=== PATIENT | male | born 1955 | race Caucasian/White ===

== ENCOUNTER 2016-08-29 00:47 | Emergency (ER) | payer SELFPAY ==
--- NOTE | ~2016-08-29 | ER ---
PATIENT'S NAME: [facility] AGE: 61 Y [address] ROOM: [place] [address] LOCATION: [facility] ADMIT DATE: 08/29/2016 ER/Outpatient Report DISCHARGE DATE: 08/29/2016 FAMILY PHYSICIAN: PHYSICIAN, NO ATTENDING PHYSICIAN: Alan Rome TIME OF ARRIVAL: 0047 hours. TIME OF EVALUATION: 0054 hours. CHIEF COMPLAINT: Right thumb swelling. HISTORY OF PRESENT ILLNESS: The patient is a 61-year-old male who presents to the emergency department today with a chief complaint of right thumb swelling. He reports he had a blister on it earlier, he picked it off, it got worse in the past day. He has taken some ibuprofen and pain is currently 8/10 in severity. It is sharp and it is worse with movement. PAST MEDICAL HISTORY: None. PAST SURGICAL HISTORY: Right wrist. SOCIAL HISTORY: The patient denies any tobacco use. Denies any alcohol use. Reports he uses a line of speed every once in a while. ALLERGIES: NO KNOWN DRUG ALLERGIES. MEDICATIONS: None. REVIEW OF SYSTEMS: All systems are reviewed by myself are negative with the exception of those discussed in HPI and past medical history. PHYSICAL EXAMINATION: VITAL SIGNS: Weight 91.5 kg. Blood pressure is 175/79, pulse 79, respiratory rate 18, temperature 98.3, and oxygen saturation 99% on room air. PATIENT'S NAME: [facility] AGE: 61 Y [address] ROOM: [place] [address] LOCATION: [facility] ADMIT DATE: 08/29/2016 ER/Outpatient Report DISCHARGE DATE: 08/29/2016 FAMILY PHYSICIAN: PHYSICIAN, NO ATTENDING PHYSICIAN: Alan Rome GENERAL: The patient is a 61-year-old male, appears stated age, in mild acute distress, secondary to the pain in his thumb. HEENT: Normocephalic, atraumatic. NECK: Supple. There is no nuchal rigidity. CARDIOVASCULAR: Regular rate and rhythm. LUNGS: Clear to auscultation. ABDOMEN: Soft, nontender, and nondistended. No rebound, rigidity, or guarding. MUSCULOSKELETAL: The patient has full range of motion. No bony tenderness to palpation. SKIN: The patient has a fluctuant area at the right thumb surrounding the nail bed consistent with paronychia. There is some erythema proximal. LABS AND X-RAYS: None. IMPRESSION: 1. Paronychia, right thumb. 2. Initial visit. EMERGENCY DEPARTMENT COURSE: The patient brought back to the examination room. He was seen and evaluated by myself. History and physical performed by myself. I have recommended incision and drainage of the paronychia. The risks and benefits are discussed. Consent is obtained. A digital block is performed by myself. A 1% lidocaine with 0.5% Marcaine is infiltrated. There is some bloody discharge noted. I discussed return to care instructions including worsening symptoms or any other concerns to return to the emergency department as soon as possible. I have asked that he follows up with primary care doctor in 24 hours for reevaluation. I have written a prescription for [place], dispensing #6, 5/325. The patient's tetanus is updated. I also wrote a prescription for Bactrim. The patient is agreeable without further questions. DISPOSITION: The patient is discharged home in good condition. DO AURY JASMINE/heri /[id number] d: 08/29/16 0328 t: 09/03/16 1332, OUTPATIENT REPORT
== END 2016-08-29 01:27 | disposition disaster alternative care site (69) ==
LOC: GMED 00:47
PROC: 0H9FXZZ Drainage of Right Hand Skin, External Approach (ICD-10-PCS; principal; 2016-08-29)
DX: L03.011 Cellulitis of right finger (principal); Z23 Encounter for immunization

== ENCOUNTER 2016-09-07 17:10 | Inpatient (IN) | payer SELFPAY ==
[~2016-09-07] VITALS: Ht 175.3 cm; Wt 82.0 kg
--- NOTE | ~2016-09-07 | CON ---
PATIENT'S NAME: GOPI YI [facility] AGE: 61 Y [address] ROOM: [place] [id number] LOCATION: [facility] ADMIT DATE: 09/07/2016 Consultation DISCHARGE DATE: FAMILY PHYSICIAN: ABRAHAM HOUSER ATTENDING PHYSICIAN: OPAL SALVADOR DATE OF CONSULTATION: 09/07/2016 CONSULTATION NOTE CHIEF COMPLAINT: Right thumb pain. HISTORY OF PRESENT ILLNESS: Gopi Yi is a 61-year-old male. He presented to the emergency room with worsening right thumb pain and swelling. He said that the antibiotics that he was placed at the previous encounter did not seem to be working as the redness and the drainage has increased. He says that he has not had any fevers or chills but he is definitely having worsening redness. He had presented to the emergency room several days ago. At that point, he underwent a debridement and irrigation in the emergency room by the ER physician. He was placed on oral antibiotics and discharged to home. He has been compliant with the oral antibiotics per his report, but he says that the redness is getting worse. He said that all of this started as a small area of pus draining on just adjacent to the nail. He is able to squeeze it and expressed a little bit of pus out of it. He said that the redness did worsen and he presented to the emergency room with initial encounter with quite a bit of sloughing of the skin. PAST MEDICAL HISTORY: None. MEDICATIONS: He denies any home medications on a regular basis outside of the current antibiotic he is on. SOCIAL HISTORY: He denies any alcohol. He denies any illicit drug use. He denies any tobacco use. REVIEW OF SYSTEMS: As per the HPI, a 14-point review of systems was conducted and is negative. PATIENT'S NAME: GOPI YI [facility] AGE: 61 Y [address] ROOM: [address] [address] LOCATION: [facility] ADMIT DATE: 09/07/2016 Consultation DISCHARGE DATE: FAMILY PHYSICIAN: ABRAHAM HOUSER ATTENDING PHYSICIAN: OPAL SALVADOR FAMILY HISTORY: Reviewed and is noncontributory. PHYSICAL EXAMINATION: GENERAL APPEARANCE: He is awake, he is alert, and he is oriented. He is accompanied by his . HEAD: Normocephalic and atraumatic. LUNGS: Unlabored respirations on room air. ABDOMEN: Nondistended. AND RECTAL: Deferred. EXTREMITIES: Left upper extremity, the skin is intact. There is no erythema. There is no ecchymosis. There is no induration. He has no evidence of any crepitus over the left shoulder, left elbow, or left wrist. Skin is intact. Right upper extremity; he has no pain over the right clavicle, right shoulder, right elbow, or right wrist. The skin over those areas is intact. He has full passive range of motion of the right shoulder and right elbow and right wrist. He does have significant erythema and swelling in kind of a fusiform manner including the proximal and distal phalanx of the right thumb. The nail is intact. Good capillary refill. It is warm to the touch. He has two areas over the radial aspect of that thumb that appeared to have purulent drainage. With gentle palpation with a gloved digit, I am able to express gross purulence out of these two areas. He does not have any pain tracking along the flexor tendon. He has so much swelling on the hand, it is difficult for him to flex and extend the IP joint of the right thumb. The redness and erythema stops at about the level of the MCP joint. No pain with passive wrist motion. No pain with MCP or IP motion of the other four digits. PLAN: At this point, we are going to take him back to the operating room. Given the gross purulence on the exam, I think he does have an abscess there. We are going to review the xrays taken in the ER today, which show a fracture on uncertain etiology. I am going to have him admitted by the Hospitalist for IV antibiotics until the infection starts to clear up. I did talk to him about the risk of bleeding, damage to surrounding structures including blood vessels, and nerves. Given the fact that he has two areas with gross purulence draining at present which is gentle palpation, I think we would definitely have to I and D these. Will plan on addressing the fracture once the infection has cleared. PATIENT'S NAME: GOPI YI [facility] AGE: 61 Y [address] ROOM: [place] [address] LOCATION: [facility] ADMIT DATE: 09/07/2016 Consultation DISCHARGE DATE: FAMILY PHYSICIAN: PHYSICIAN, ABRAHAM ATTENDING PHYSICIAN: OPAL SALVADOR MD LUIS A HUFF/modl /[id number] d: 09/08/16 0006 t: 09/10/16 2154, CONSULTATION REPORT
--- NOTE | ~2016-09-07 | OR ---
PATIENT'S NAME: GOPI YI [facility] AGE: 61 Y [address] ROOM: [place] [address] LOCATION: [facility] ADMIT DATE: 09/07/2016 OR/Procedure Report DISCHARGE DATE: FAMILY PHYSICIAN: ABRAHAM HOUSER ATTENDING PHYSICIAN: MIKE SALVADOR SURGEON: Mike Salvador MD MILLWRIGHT HELPER: None. DATE OF PROCEDURE: 09/07/2016 PREOPERATIVE DIAGNOSES: 1. Right thumb distal phalanx fracture. 2. Right thumb active infection with purulence. POSTOPERATIVE DIAGNOSES: 1. Right thumb distal phalanx fracture. 2. Right thumb active infection with purulence. PROCEDURE: 1. Right thumb abscess irrigation and debridement. 2. Irrigation of right open distal phalanx fracture. ANESTHESIA: MAC anesthesia. COMPLICATIONS: None. SPECIMEN: Cultures x2. DRAINS: A red vessel loop drain. INDICATIONS: Gopi Yi is a 61-year-old male. He presented to the emergency room tonight with worsening redness, swelling, and drainage of that right thumb. He had previously been seen in the emergency room and then treated by the ER physician. At that point, he was felt to have an area of skin sloughing. The sloughed skin was debrided. He was placed on oral antibiotics. He said the redness and pain persisted to the point where he was losing motion to that thumb. The interesting this is that he denies any trauma to the right thumb. He says that he did have trauma years ago, but no recent trauma. He says he has had limited range of motion for a while. He says that the redness was persistent enough that he had presented to the emergency room. He denies any fevers or chills. He denies any nausea or vomiting. He denies any infections anywhere else. When I evaluated him in the emergency room, he was found to have two areas both approximately 5 to 6 mm in diameter that had purulence drainage, draining from them. He had a kind of a fusiform swelling over that thumb. He had limited range of motion through the IP joint but had pretty good motion through the MP joint of that thumb. X-rays were finally PATIENT'S NAME: GOPI YI [facility] AGE: 61 Y [address] ROOM: [place] [address] LOCATION: [facility] ADMIT DATE: 09/07/2016 OR/Procedure Report DISCHARGE DATE: FAMILY PHYSICIAN: ABRAHAM HOUSER ATTENDING PHYSICIAN: MIKE SALVADOR able to be reviewed that were taken in the emergency room. Did show what appeared to be a kind of some degenerative changes across the thumb. It also appeared to have kind of what appeared to be an acute fracture of the thumb. Given those findings, I talked to him about the purulence. My big concern at that time was the active infection. I told him that we cannot treat the fracture until the infection is completely cleared. Ultimately, I was worried about the potential FPL tendon given the fact that we did not have much motion through that thumb. I talked to him about the need for potential surgery. He ultimately wanted to leave the emergency room, but I said given the fact that the infection has persisted, I felt like he needed to have a formal irrigation and debridement in the operating room and that something done in the emergency room would not be adequate. We talked about the risk of bleeding, infection, damage to surrounding structures including blood vessels and nerves, as well as the potential need for future surgery. He ultimately elected to proceed with surgery. DESCRIPTION OF PROCEDURE: Surgical marking pen was used to correctly identify the right thumb as the surgical site. Consent was signed and dated. He was taken back to the operating suite. He underwent MAC anesthesia. A time-out was called by myself. During the time-out, the patient, the procedure to be performed, the dosing of the preoperative antibiotics, and the postoperative plan was reviewed by everyone in the room. Right upper extremity was then prepped and draped in standard sterile fashion. No tourniquet was used. The hemostat was used to spread through the evidence of purulence. Gross purulence again was able to be easily expressed. Cultures both aerobic and anaerobic were obtained and passed off. At this point, I was able to see that those two areas did communicate. I was able to palpate with a hemostat, bone and deep aspect of the wound. Single skin hooks were placed at the edge of each wound. I then thoroughly irrigated with a liter of normal saline through a bulb irrigant. At the bed of the wound, I was able to visualize the fracture. I did not attempt any type of fixation. I thoroughly irrigated the wound. Hemostasis was achieved. A red vessel loop was then placed through and through each of the wounds. The red vessel loop was tunneled between the two. I then dressed the wound with Xeroform, followed by 4x4s, followed by Maryann wrap. He was transferred to the recovery room in stable condition. He will be admitted by the hospitalist. He will be started on IV antibiotics in the form of Zosyn. Await for cultures and sensitivities to come back. At this point, given the fracture, I am worrying not only about the fracture healing in the site of infection but also worry about his flexor pollicis longus tendon. Both he and his were aware of these circumstances. PATIENT'S NAME: GOPI YI [facility] AGE: 61 Y [address] ROOM: [id number] [place] [id number] LOCATION: [facility] ADMIT DATE: 09/07/2016 OR/Procedure Report DISCHARGE DATE: FAMILY PHYSICIAN: ABRAHAM HOUSER ATTENDING PHYSICIAN: MIKE SALVADOR MD LUIS A HUFF/heri /[id number] d: 09/08/16211 t: 09/10/16 2159, OPERATIVE SUMMARY
--- NOTE | ~2016-09-07 | ER ---
PATIENT'S NAME: KASSIDY [facility] AGE: 61 Y [address] ROOM: [place] [address] LOCATION: [facility] ADMIT DATE: 09/07/2016 ER/Outpatient Report DISCHARGE DATE: FAMILY PHYSICIAN: , NO ATTENDING PHYSICIAN: OPAL SALVADOR Time of Arrival: 1710 hours. Time of Evaluation: 1720 hours. IDENTIFICATION: A 61-year-old male. CHIEF COMPLAINT: Right thumb pain and swelling. HISTORY OF PRESENT ILLNESS: The patient is a 61-year-old male, who was evaluated on August 29 for an I and D of a paronychia. He took Bactrim for 7 days, and since stopping the Bactrim, has had increased redness and swelling. He was seen at [facility] to get more antibiotics and Markos Olson debrided the blister that now covered his entire right thumb and referred him here for orthopedic consultation. On arrival here, the patient is a little bit vague about whether it is better or worse. He has a little bit more pain. He has had swelling. According to his girlfriend, the swelling got better and now the swelling has increased. When I reviewed Dr. Rome's notation on August 29, he had, according to his physical examination, no fever, fluctuant area around the nail bed with paronychia, some proximal erythema, but full range of motion. The nurse who is here today also took take care of him on that date, and he has increasing redness, significant increase in swelling, 2 areas of purulent drainage, no fever. PAST MEDICAL HISTORY: ALLERGIES: NO KNOWN DRUG ALLERGIES. MEDICATIONS: No current medications. MEDICAL PROBLEMS: Denies. No prior surgeries or hospitalizations. SOCIAL HISTORY: The patient lives here in [place]. He is self-employed. Tobacco use, denies. Alcohol use, denies. Drug use, he denies to me. I think the other day he did PATIENT'S NAME: VIKI YI [facility] AGE: 61 Y [address] ROOM: [place] [address] LOCATION: [facility] ADMIT DATE: 09/07/2016 ER/Outpatient Report DISCHARGE DATE: FAMILY PHYSICIAN: PHYSICIAN, NO ATTENDING PHYSICIAN: OPAL SALVADOR admit to using a line of speed every once in a while; similar to other people drinking coffee, it is how he explained it to the nurse. FAMILY HISTORY: Mother with hypertension. REVIEW OF SYSTEMS: All systems reviewed and negative other than what is noted in the HPI. PHYSICAL EXAMINATION: VITAL SIGNS: Weight 88.8 kg, height 5 feet 8 inches. Blood pressure 166/85, pulse 100, respirations 18, temperature 98.3, and saturations 98%. GENERAL: A 61-year-old male, in mild distress. HEENT: Unremarkable. LUNGS: Clear to auscultation. HEART: Regular rate and rhythm. ABDOMEN: Soft, nondistended, nontender. SKIN: [place], warm, and dry. NEURO: No focal deficits. EXTREMITIES: Left upper extremity: Full range of motion. Right upper extremity: Shoulder and elbow, full range of motion. Wrist, full range of motion. His right thumb though, he has had a blister debrided almost the whole dorsal aspect of his thumb. He has a couple of purulent areas where there is purulent drainage. He said those have always been there. Decreased range of motion. Significant swelling. He cannot flex and extend his DIP joint without pain. He is able to flex and extend minimally his metacarpophalangeal joint, it is tender to palpation. IMAGING DATA: X-ray reveals significant degenerative changes. It does look like he has an avulsion fracture of the distal phalanx of the thumb. No previous x-ray available. EMERGENCY DEPARTMENT COURSE: CBC, CRP, and sedimentation rate have been obtained, and Dr. Salvador has been requested for consultation. He is currently in the operating room. He has been asked to call when he has done operating, and Dr. Lozada is on at this time and will assume care. His CBC did return with a white count of 11.6, normal differential. Sedimentation rate elevated at 26 and CRP elevated at 1.43. IMPRESSION AND PLAN: Cellulitis/possible abscess, right thumb. Plan for orthopedic consultation, possible admission for IV antibiotics. Saline lock was initiated here in the emergency room, and at this time, we are awaiting Orthopedic consultation, and PATIENT'S NAME: VIKI YI [facility] AGE: 61 Y [address] ROOM: [place] [address] LOCATION: [facility] ADMIT DATE: 09/07/2016 ER/Outpatient Report DISCHARGE DATE: FAMILY PHYSICIAN: ABRAHAM HOUSER ATTENDING PHYSICIAN: OPAL SALVADOR Dr. will assume any necessary care. MD ZULMA MCNEILL/heri /[id number] d: 09/08/16807 t: 09/09/16922, OUTPATIENT REPORT
--- NOTE | ~2016-09-07 | HP ---
PATIENT'S NAME: VIKI YI [facility] AGE: 61 Y [address] ROOM: [id number] [place], [place] [address] LOCATION: [facility] ADMIT DATE: 09/07/2016 History & Physical DISCHARGE DATE: FAMILY PHYSICIAN: ABRAHAM HOUSER ATTENDING PHYSICIAN: OPAL SALVADOR DATE OF SERVICE: CHIEF COMPLAINT: Right thumb pain, swelling, and erythema. HISTORY OF PRESENT ILLNESS: This is a 61-year-old male who says that for over a year he has a lump on the right side of his thumb between the skin and the nail area. Last Thursday, he was picking and squeezing the lump and somehow some pus come out. At that time, he denied any pain; however a few days later, he started having this pain in that area, and also still with pus and was becoming swollen and also inflamed and red. Because of that, the patient came here to the emergency room on August 29, 2016. He also complained of some chills on and off, but he never took temperature at home. Over here in the emergency room in August 29, 2016, patient underwent an incision and drainage for presumed diagnosis of paronychia and was discharged with Hemet for pain control and also with Bactrim. The patient went home, took all the antibiotics and he finished the antibiotics just this Thursday, few days ago. Therefore, he went to an Urgent Care Clinic to see if he would require more refill of the antibiotics and he was sent over here for further evaluation after they squeezed out more pus and his pain in that area returned and he was sent here for evaluation. Over here, the patient had blood work performed already and it showed leukocytosis at 11.6, ESR 26, CRP 1.43, and the orthopedic surgeon, Dr. Salvador was consulted and the patient was taken to the operating room for incision and drainage and the drainage was already sent for Gram stain and culture and based on the verbal report given to me by the patient and his family member, he was found to have abscess again, but at this time, he was also found to have a fracture of the right thumb. There was a concern about bone infection as well. The patient recovered from the surgery without delirium and was sent to Pediatric Unit floor for admission. REVIEW OF SYSTEMS: As mentioned in the history of present illness. All other systems reviewed and negative except those mentioned in the history of present illness. [facility] AGE: 61 Y [address] ROOM: [place] [address] LOCATION: [facility] ADMIT DATE: 09/07/2016 History & Physical DISCHARGE DATE: FAMILY PHYSICIAN: PHYSICIAN, NO ATTENDING PHYSICIAN: OPAL SALVADOR PAST MEDICAL HISTORY: No known past medical history. ALLERGIES: NO KNOWN DRUG ALLERGY ACCORDING TO THE PATIENT. HOME MEDICATIONS: None. SOCIAL HISTORY: He denies any cigarette or alcohol or illegal drug use. PAST SURGICAL HISTORY: None FAMILY HISTORY: Father is healthy and the mother has hypertension. PHYSICAL EXAMINATION: VITAL SIGNS: At the time of my dictation, temperature 97.8, heart rate of 78, respirations 16, blood pressure 153/81, saturation 99% on room air. Pain 2/10 in the right thumb postsurgical area. GENERAL APPEARANCE: Alert and oriented x3, in no acute distress. HEENT: Pupils are equally round and reactive to light. Extraocular muscles intact. Anicteric sclerae. Nasal turbinates are normal bilaterally. Moist oral mucosa. NECK: No JVD. CARDIOVASCULAR: Regular rate and rhythm. Normal S1, S2. No murmur, no rubs, no gallops. RESPIRATORY: Clear. Chest wall nontender to palpation. ABDOMEN: Soft, nontender, nondistended. Normal bowel sounds. No hepatosplenomegaly. EXTREMITIES: The right thumb is covered by dressing. Sensation intact in the in the right hand. No edema in upper or lower extremities. NEUROLOGIC: Grossly nonfocal. SKIN: The right thumb is wrapped in a dressing. Otherwise, no ulcer, no rash, no cyanosis in other areas. MUSCULOSKELETAL: Right thumb has some mild pain 2/10 intensity at the postsurgical area. Otherwise, unremarkable in all other extremities. LABORATORY DATA: Lactic acid is pending. White blood cell 11.6, hemoglobin 13.9, hematocrit 42.7, MCV 88.6, platelet 472. Basic metabolic panel is pending. LFT is pending. ESR 26. CRP 1.43. Procalcitonin is pending. PATIENT'S NAME: [facility] AGE: 61 Y [address] ROOM: [place] [address] LOCATION: [facility] ADMIT DATE: 09/07/2016 History & Physical DISCHARGE DATE: FAMILY PHYSICIAN: ABRAHAM HOUSER ATTENDING PHYSICIAN: OPAL SALVADOR MICROBIOLOGY STUDY: The drainage from the right thumb, the wound culture, and the gram stain are pending. IMAGING STUDIES: X-ray of the right hand on admission show suspected avulsion fracture involving the anterolateral base of the distal phalanx of the thumb. Degenerative changes. ASSESSMENT AND PLAN: 1. RIght thumb pain secondary to abscess and possible osteomyelitis in the setting of bone fracture: Follow up on the official operative report once it is available for details of the findings during the procedure. Patient's family member said she was told the bone might also be infected. For now, I am going to cover him empirically for skin abscess management and also with the osteomyelitis coverage with IV vancomycin and IV Zosyn. The patient will get Florastor 250 mg p.o. b.i.d. to prevent antibiotic- induced C. diff colitis. I will check lactic acid, procalcitonin, and ESR CRP again in the morning and also a CBC. Pain control with IV morphine p.r.n. and on Percocet p.r.n. p.o. 2. Further plan depends on clinical course: I am also going to get blood culture 2 sets. 3. Deep venous thrombosis prophylaxis. Per Orthopedics. Further plan depends on clinical course. Time spent in care on the day of admission 35 minutes including chart review, interviewing, and examining the patient, addressing all the questions and concerns the patient had, and going over the plan of care with the patient and patient's family members. TARAS BRUNO MD CC/heri /[id number] D: [id number] T: [id number] HISTORY & PHYSICAL
[2016-09-07 17:42] LABS: BASOPHIL # 0.2 K/uL (0.0-0.2); BASOPHIL % 2.1 %; EOSINOPHIL # 0.2 K/uL (0.0-0.5); HEMATOCRIT 42.7 % (37.0-53.0); HEMOGLOBIN 13.9 g/dL (11.0-16.0); IMMATURE GRANULOCYTE # 0.3 K/uL (0.0-0.3); IMMATURE GRANULOCYTE % 2.5 %; LYMPHOCYTE # 2.1 K/uL (0.8-4.0); LYMPHOCYTE % 18.4 %; MCH 28.8 pg (27.0-34.0); MCHC 32.6 gm/dL (32.0-36.5); MCV 88.6 fl (83.0-98.0); MONOCYTE # 0.5 K/uL (0.0-1.0); MONOCYTE % 4.7 %; MPV 9.1 fl (9.4-12.4); NEUTROPHIL # (ANC) 8.2 K/uL (1.4-9.0); NEUTROPHIL % 70.3 %; NRBC % 0 /100WBC (0-0.00); PLATELET COUNT 472 K/uL (150-450); RBC 4.82 M/uL (3.50-5.50); RDW-CV 13.5 % (11.9-14.6); WBC 11.6 K/uL (4.0-11.0)
[2016-09-08 03:28] LABS: ALBUMIN 3.1 gm/dL (3.5-5.0); ALK PHOS 121 IU/L (33-138); ALT 47 IU/L (12-78); ANION GAP 16.2 (10.0-19.0); AST 27 IU/L (10-40); BLOOD UREA NITROGEN 17 mg/dL (6-24); CALCIUM 8.6 mg/dL (8.5-10.5); CHLORIDE 106 mMol/L (96-110); CO2 23 mMol/L (22-32); CREATININE 1.2 mg/dL (0.6-1.3); ESTIMATED GFR (MDRD EQUATION) > 60; POTASSIUM 4.2 mMol/L (3.7-5.1); SODIUM 141 mMol/L (135-145); TOTAL BILIRUBIN 0.2 mg/dL (0.0-1.5); TOTAL PROTEIN 6.6 g/dL (6.0-8.4)
--- NOTE | 2016-09-08 05:11 | NUR ---
Significant Event: Patient arrived to floor at 0110 after I/D of right thumb. Had been in to ER last week, had it drained, finished antibiotics at home but kept getting worse. Has small right thumb fx. Dressing on remains dry and intact. CSM within normal limits. Is NWB to RUE. IV to left forearm running fluids and zosyn and vanco started. Vitals stable, on room air. Ambulated in halls. IV morphine given x1 and percocet given x2 for pain. Compression stockings on and compliant with IS. Follow up: neurochecks q2hrs until 0130
[2016-09-08 06:31] LABS: BASOPHIL # 0.2 K/uL (0.0-0.2); EOSINOPHIL # 0.4 K/uL (0.0-0.5); EOSINOPHIL % 2.3 %; HEMATOCRIT 38.4 % (37.0-53.0); HEMOGLOBIN 12.6 g/dL (11.0-16.0); IMMATURE GRANULOCYTE # 0.2 K/uL (0.0-0.3); IMMATURE GRANULOCYTE % 1.2 %; LYMPHOCYTE # 3.1 K/uL (0.8-4.0); LYMPHOCYTE % 19.8 %; MCH 28.9 pg (27.0-34.0); MCHC 32.8 gm/dL (32.0-36.5); MCV 88.1 fl (83.0-98.0); MONOCYTE % 6.5 %; MPV 9.4 fl (9.4-12.4); NEUTROPHIL # (ANC) 10.7 K/uL (1.4-9.0); NEUTROPHIL % 69.2 %; NRBC % 0 /100WBC (0-0.00); PLATELET COUNT 435 K/uL (150-450); RBC 4.36 M/uL (3.50-5.50); RDW-CV 13.7 % (11.9-14.6); WBC 15.5 K/uL (4.0-11.0)
--- NOTE | 2016-09-08 14:23 | NUR ---
Met with patient this morning at bedside. Introduced myself and the role of the CM department. Patient does not have any type of insurance. He states that he does have financial struggles and is concerned about paying for the hospitalization and medications. I provided him with the Call Center Manager Application and encouraged him to get that filled out and turn it back in. I also talked to him about [facility], but I let him know that [facility] does not provide assistance for antibiotics. Will wait to see what meds he is going to discharge on and then offer assistance if needed. Patient denies having any other needs. Referral sent to Biju with Karsten to assess is Medicaid is an option for patient. Will continue to follow and offer assistance as needed.
--- NOTE | 2016-09-08 16:29 | NUR ---
Significant Event: PT A&O x3. VSS, on room air. Dressing intact to R)thumb. IV patent to L)arm. Vanco dc'd and zyvox started, remains on zosyn. PT ambuates with SBA. Voiding without difficultes. Minimal appetite. Pain controlled with percocet 1 tab at 1100. Possible dc to home tomorrow. Follow up:
--- NOTE | 2016-09-09 03:36 | NUR ---
Significant Event: AFEBRILE THIS SHIFT. IV ANTIBIOTICS CONTINUE ORDERED. DENIES NEED FOR PAIN MEDS. RATES PAIN AT 1 ON PAIN SCALE. SLEPT WELLDRESSING TO HAND/THUMB, D/I. CSM ADEQUATE. FEELING PRESENT AND NORMAL. SENSATION NORMAL. Follow up: CONTINUE IV MEDS DIRECTED
[2016-09-09 05:44] LABS: BASOPHIL # 0.2 K/uL (0.0-0.2); BASOPHIL % 2.2 %; EOSINOPHIL # 0.5 K/uL (0.0-0.5); EOSINOPHIL % 5.2 %; HEMOGLOBIN 13.1 g/dL (11.0-16.0); IMMATURE GRANULOCYTE # 0.2 K/uL (0.0-0.3); IMMATURE GRANULOCYTE % 2.3 %; LYMPHOCYTE # 2.4 K/uL (0.8-4.0); LYMPHOCYTE % 25.2 %; MCH 28.7 pg (27.0-34.0); MCV 89.9 fl (83.0-98.0); MONOCYTE # 0.7 K/uL (0.0-1.0); MONOCYTE % 7.2 %; MPV 9.2 fl (9.4-12.4); NEUTROPHIL # (ANC) 5.6 K/uL (1.4-9.0); NEUTROPHIL % 57.9 %; NRBC % 0 /100WBC (0-0.00); PLATELET COUNT 416 K/uL (150-450); RBC 4.56 M/uL (3.50-5.50); WBC 9.7 K/uL (4.0-11.0)
[2016-09-09 06:02] LABS: ANION GAP 12.5 (10.0-19.0); BLOOD UREA NITROGEN 15 mg/dL (6-24); CALCIUM 8.4 mg/dL (8.5-10.5); CHLORIDE 107 mMol/L (96-110); CO2 27 mMol/L (22-32); CREATININE 1.2 mg/dL (0.6-1.3); ESTIMATED GFR (MDRD EQUATION) > 60; POTASSIUM 4.5 mMol/L (3.7-5.1); SODIUM 142 mMol/L (135-145)
[2016-09-09] MEDS ORDERED: FLORASTOR250 MG PO (14:22)
[2016-09-09] MEDS ORDERED: PERCOCET 5-3251 EACH PO (14:23)
[2016-09-09] MEDS ORDERED: DOXYCYCLINE100 MG PO (14:24)
--- NOTE | 2016-09-09 14:48 | NUR ---
8193 Phone call from Jesica RN on PEDS stating patient is concerned about being able to afford the prescriptions. Per Jesica patient is to discharge on Doxycycline 100mg BID x 14 days. I called [facility] at [phone] and spoke to Stuart. He quoted me two prices as there are two types of Doxycycline. The Doxycycline Hyclate will be $27.85 for the 28 pills and the Doxycycline Riley will be $24.50 for the 28 pills. Jesica shared this with the patient and he states that he is able to pay either amount and has no concerns covering his amount. No other needs at this time.
--- NOTE | 2016-09-09 15:29 | NUR ---
D: PATIENT VITAL SIGNS STABLE PATIENT AFEBRILE. PATIENT UP IN ROOM TOLERATING EXCELLENT. PATIENT REFUSING MEALS AND READY TO GO HOME. DISCHARGE ORDERS RECEIVED TO DISCHARGE PATIENT TO HOME. I: DISHCHARGE INSTRUCTIONS WITH MEDICATION EDUCATION PROVIDED TO PATIENT AND SO. R: PATIENT AND SIGNIFICANT OTHER STATE UNDERSTADING OF INSTRUCTIONS, DENY ANY QUESTIONS. P: CONTINUE WITH DISCHARGE ORDERED. DISMISSAL GOALS MET.
--- NOTE | 2016-09-09 15:35 | NUR ---
D: GUAZE 4X4 (NUMBER 6) AND ZEROFORM (NUMBER 6) PROVIDED TO PATIENT FOR DAILY DRESSING CHANGES. REVIEWED WITH PATIENT WITH VERBALIZED UNDERSTANDING
== END 2016-09-09 15:00 | disposition disaster alternative care site (69) | DRG 603 ==
LOC: GMED 17:10 → GSDC 23:06 → GPED 23:06 → GSDC 23:07 → GPED 23:07
PROVIDERS: Family Medicine; Internal Medicine; Orthopaedic Surgery Sports Medicine; Physician Assistant; ADMIT Hospitalist
PROC: 0J9J0ZX Drainage of Right Hand Subcutaneous Tissue and Fascia, Open Approach, Diagnostic (ICD-10-PCS; principal; 2016-09-07)
DX: L02.511 Cutaneous abscess of right hand (principal); N18.3 Chronic kidney disease, stage 3 (moderate); S62.521B Displaced fracture of distal phalanx of right thumb, initial encounter for open fracture; X58.XXXA Exposure to other specified factors, initial encounter; L03.011 Cellulitis of right finger; B95.61 Methicillin susceptible Staphylococcus aureus infection as the cause of diseases classified elsewhere
CPT/HCPCS: J0690; J2020; J2250; J2270; J2543; J3010; J3370; J3480; J7050; J7120

== ENCOUNTER 2016-09-17 12:30 | Inpatient (IN) | payer SELFPAY ==
[~2016-09-17] VITALS: Ht 172.7 cm; Wt 86.5 kg
--- NOTE | ~2016-09-17 | DS ---
PATIENT'S NAME: [facility] AGE: 61 Y [address] ROOM: [id number] [place], [place] [address] LOCATION: GPCU ADMIT DATE: 09/17/2016 Discharge Summary DISCHARGE DATE: 09/22/2016 FAMILY PHYSICIAN: PHYSICIAN, NO ATTENDING PHYSICIAN: Olive Jeffrey FINAL DIAGNOSES: 1. Right thumb abscess. 2. Osteomyelitis. INDICATIONS: Please see the history and physical dictated by Dr. Jeffrey for details, but in short, the patient had had recurrent infection in his thumb and cultures obtained on September 07 grew Staph aureus methicillin. He had been taking doxycycline and continued to get worse. He was admitted for surgical debridement. LABORATORY DATA: On admit, sodium 139, potassium 4.9 chloride 105, CO2 25, BUN 20, and creatinine 0.5. C-reactive protein 1.34. Liver enzymes were normal. White blood cell count on admission was 15.3, hemoglobin 39, hematocrit 43.1, and platelet count 428. Sedimentation rate on admission 21. Culture data from this hospitalization was negative. Pathology showed osteonecrosis with changes, with chronic inflammation and marrow fibrosis, all of which was consistent with osteomyelitis. HOSPITAL COURSE: The patient was admitted after undergoing a right thumb debridement with Dr. Duke. At that time, there was a bone removed and cultures obtained. The patient was continued on his antibiotics of Cipro, doxycycline, and IV Ancef. He was admitted to the floor under the Hospitalist Service. He was given pain medication as needed. A PICC line was placed, and it was felt he would need long-term anticoagulation. Overall, he remained fairly stable. We awaited the results of the pathology. There was concern about his ability to obtain antibiotics due to his lack of insurance. Arrangements were made for the patient to receive once daily antibiotics at the [facility]. I did speak with Infectious Disease by phone. Based on the sensitivities, it was felt that he would be best served with using IV Invanz for 6 weeks. The patient received 1 dose of IV Invanz without any difficulty. It was felt that he was stable. PLAN ON DISCHARGE: He is discharged to home. He will follow up with the [facility] on the morning of September 23 at 8:45 for his 1st dose. He is to follow up with Dr. Duke 3 days post discharge. He is to keep the dressing clean and dry. Arrangements were made for him to see Infectious Disease as well. DISCHARGE MEDICATIONS: PATIENT'S NAME: [facility] AGE: 61 Y [address] ROOM: [id number] [place], [place] [address] LOCATION: GPCU ADMIT DATE: 09/17/2016 Discharge Summary DISCHARGE DATE: 09/22/2016 FAMILY PHYSICIAN: PHYSICIAN, NO ATTENDING PHYSICIAN: Olive Jeffrey 1. Invanz 1 g IV daily x6 weeks, stop date at this point is November 02. 2. He is to complete his Florastor that he has at home 1 pill twice a day. 3. Percocet 5/325 one tablet every 2 hours as needed for pain, he was given a script for 20. 4. He was also advised when he runs out of the Florastor to buy Align probiotic or its generic equivalent over the counter and continue to use that. 5. We also discussed eating yogurt daily. The details of this information were relayed to Dr. Duke who has felt the patient was stable for discharge. SURJIT ROJAS MD LAW/modl /[id number] CC: Mukesh Duke DO d: 09/23/162002 t: 10/01/16 1815, DISCHARGE SUMMARY
--- NOTE | ~2016-09-17 | OR ---
PATIENT'S NAME: [facility] AGE: 61 Y [address] ROOM: [place] [address] LOCATION: GPCU ADMIT DATE: 09/17/2016 OR/Procedure Report DISCHARGE DATE: 09/22/2016 FAMILY PHYSICIAN: PHYSICIAN, NO ATTENDING PHYSICIAN: Olive Jeffrey SURGEON: Mukesh Duke DO ASSISTANT WAREHOUSE MANAGER: Staff. DATE OF PROCEDURE: 09/17/2016 PREOPERATIVE DIAGNOSIS: Right thumb osteomyelitis. POSTOPERATIVE DIAGNOSIS: Right thumb osteomyelitis. PROCEDURE: Right thumb debridement to bone. ANESTHESIA: General plus intraoperative digital block. ESTIMATED BLOOD LOSS: Less than 20 mL. TOURNIQUET TIME: Less than 10 minutes at 250 mmHg. COMPLICATION: None. DISPOSITION: Stable to recovery room. JUSTIFICATION FOR PROCEDURE: Frederick Yi is a 61-year-old man with a history of right thumb infection. He was previously treated elsewhere by other physicians. He had repeat x-rays done in the office on this date, which showed evidence for osteomyelitis and a clinical evidence for septic IP joint and possible flexor and/or extensor tendon sepsis. He was counseled as to treatment options, risks versus benefits, and necessary afterward care. He gave informed consent to proceed with a debridement of the right thumb and any indicated procedures. PROCEDURE IN DETAIL: The patient was properly identified, both verbally and by name tag. He was taken to the operating suite and placed on the operating table in the supine position. The anesthesiologist administered a general anesthetic and intubated him. Once adequate anesthesia was obtained, the right upper extremity was prepped and draped in the usual sterile fashion. The extremity was held elevated and no exsanguination was performed. The brachial artery was compressed at the level of the elbow and the tourniquet was inflated at the level of the arm to 250 mmHg. A #15 blade knife was used to make curvilinear incision around the dorsal aspect of the thumb over the IP joint and the 2nd incision on the PATIENT'S NAME: [facility] AGE: 61 Y [address] ROOM: [place] [address] LOCATION: GPCU ADMIT DATE: 09/17/2016 OR/Procedure Report DISCHARGE DATE: 09/22/2016 FAMILY PHYSICIAN: PHYSICIAN, NO ATTENDING PHYSICIAN: Olive Jeffrey A palmar aspect. Under loupe magnification, careful blunt dissection was carried down through the superficial to the deep fascia. Immediately upon entering the superficial soft tissues, a small amount of gross purulence was expressed. The bone on both sides of the IP joint showed necrotic changes consistent with osteomyelitis. Cultures were taken from within the joint and the bone tissue was treated with curettage. The curetted bone was sent to pathology for identification. The flexor and extensor mechanism was explored. Fortunately, there was no pus tracking along the flexor or extensor mechanism. There was purulence within the pad and the periungual tissues dorsally. The nail was debrided as well. The wound was copiously irrigated with saline. Tourniquet was let down after less than 10 minutes and good capillary refill was noted distally. There was no arterial bleeding noted. Hemostasis was obtained with direct pressure and minimal bipolar electrocautery. Dorsal and volar neurovascular structures were carefully protected throughout the procedure. These were reexplored prior to bandage placement and none showed any evidence of iatrogenic injury. There was some instability both pre and postoperatively at the IP joint, presumably because of loss of bony architecture and ligamentous support due to necrotic tissue. All necrotic tissues were debrided as part of the procedure. There was no significant instability to where the joint to be dislocated, but there was definitely increased play to both varus valgus and pivoting stresses through the IP joint both pre and post debridement. The wound was irrigated a final time. The incisions were covered with sterile nonstick gauze and a bulky dressing was applied as well as a splint. The patient was aroused from IV sedation, taken to the recovery room in good condition. Immediate postoperative examination in the recovery room showed good capillary refill distally. There was no arterial bleeding, there was no bleed through the bandages, and a light touch sensation was absent due to presence of the intra-articular intraoperative digital blockade placed prior to letting the tourniquet down for postop pain control. DO VERONICA ART/heri /[id number] d: 09/25/16 0206 t: 09/25/16 2304, OPERATIVE SUMMARY
--- NOTE | ~2016-09-17 | CON ---
PATIENT'S NAME: [facility] AGE: 61 Y [address] ROOM: [place] [address] LOCATION: [facility] ADMIT DATE: 09/17/2016 Consultation DISCHARGE DATE: FAMILY PHYSICIAN: PHYSICIAN, NO ATTENDING PHYSICIAN: CARA KINGSLEY REASON FOR CONSULT: Medical management/preop clearance. CHIEF COMPLAINT: Right thumb pain. HISTORY OF PRESENT ILLNESS: A 61-year-old gentleman with no significant past medical history, admitted from the Orthopedic Clinic with swelling of the right thumb. He had this problem going on since earlier in August. He underwent I and D two times on 08/29/2016 as well as 09/07/2016. He grew Staph aureus methicillin sensitive on 09/07 biopsy. He was sent home on doxycycline, but he failed to improve and his condition worsened and presented to Orthopedic Clinic today. Again, the decision to do an I and D have been undertaken. On my encounter, he complains that he is not having any tenderness, but right thumb is swollen and is difficult to move. He did not complain about any loss of sensations. He denied any fever or chills. On further inquiry, he denied any headache, any trouble with the eyes, any trouble swallowing, any chest pain, any shortness of breath, any abdominal pain, any constipation, any diarrhea, any leg swelling. REVIEW OF SYSTEMS: All other systems reviewed and were negative except what is mentioned in the HPI. MEDICATION: Doxycycline. PAST MEDICAL HISTORY: No significant past medical history. SOCIAL HISTORY: No ongoing toxic habits. No alcohol or drug abuse. FAMILY HISTORY: Family history is significant for hypertension in mother. PHYSICAL EXAMINATION: VITAL SIGNS: Vital signs were stable. GENERAL: No acute distress. Alert and oriented x3. PATIENT'S NAME: [facility] AGE: 61 Y [address] ROOM: [place] [address] LOCATION: [facility] ADMIT DATE: 09/17/2016 Consultation DISCHARGE DATE: FAMILY PHYSICIAN: PHYSICIAN, NO ATTENDING PHYSICIAN: CARA KINGSLEY HEENT: Head: Atraumatic, normocephalic. Eyes: Nonicteric. No pallor. Oropharynx: Moist mucous membranes. CARDIOVASCULAR: S1, S2. No murmurs, gallops, or rubs. LUNGS: Clear to auscultation bilaterally. ABDOMEN: Soft, nontender, nondistended. Bowel sounds are present. EXTREMITIES: No clubbing, cyanosis, or edema. PSYCH: Normal affect, mood, and speech. NEUROLOGIC: Cranial nerves 2 through 12 intact. No motor or sensory deficit. EXTREMITIES: Right thumb swollen and warmth noted. No tenderness. Range of motion is limited. LAB WORK: Pending at this point. We are going to get CBC, chemical panel, CRP, lactic acid, as well as ESR. ASSESSMENT: Right thumb cellulitis with possible osteomyelitis. PLAN: Orthopedic is going to take the patient to the I and D. Repeat blood cultures as well as cultures from the bone will be sent for pathology. Postoperatively, we intend to start him on cefazolin. PICC line will be placed as he most likely will need at least 6 weeks of antibiotics. DVT prophylaxis as per Orthopedic Surgery. MD VIMAL COX/heri /[id number] d: 09/17/162126 t: 09/18/16 0903, CONSULTATION REPORT
[~2016-09-17 12:30] MED LIST: DOXYCYCLINE100 MG PO; FLORASTOR250 MG PO; PERCOCET 5-3251 EACH PO
[2016-09-17 13:40] LABS: BASOPHIL # 0.2 K/uL (0.0-0.2); BASOPHIL % 1.1 %; EOSINOPHIL # 0.2 K/uL (0.0-0.5); EOSINOPHIL % 1.4 %; HEMATOCRIT 43.1 % (37.0-53.0); HEMOGLOBIN 13.9 g/dL (11.0-16.0); IMMATURE GRANULOCYTE # 0.2 K/uL (0.0-0.3); IMMATURE GRANULOCYTE % 1.1 %; LYMPHOCYTE % 12.8 %; MCH 28.9 pg (27.0-34.0); MCHC 32.3 gm/dL (32.0-36.5); MCV 89.6 fl (83.0-98.0); MONOCYTE % 6.3 %; MPV 9.7 fl (9.4-12.4); NEUTROPHIL # (ANC) 11.8 K/uL (1.4-9.0); NEUTROPHIL % 77.3 %; NRBC % 0 /100WBC (0-0.00); PLATELET COUNT 428 K/uL (150-450); RBC 4.81 M/uL (3.50-5.50); RDW-CV 14.5 % (11.9-14.6); WBC 15.3 K/uL (4.0-11.0)
[2016-09-17 14:18] LABS: CALCIUM 9.2 mg/dL (8.5-10.5)
[2016-09-17 14:29] LABS: CHLORIDE 105 mMol/L (96-110); POTASSIUM 4.9 mEq/L (3.7-5.1); SODIUM 139 mEq/L (135-145)
[2016-09-17 14:32] LABS: ALK PHOS 129 IU/L (33-138); CREATININE 0.5 mg/dL (0.6-1.3); ESTIMATED GFR (MDRD EQUATION) > 60; TOTAL BILIRUBIN 0.3 mg/dL (0.0-1.5); TOTAL PROTEIN 7.2 g/dL (6.0-8.4)
--- NOTE | 2016-09-17 15:03 | NUR ---
Significant Event: Pt. was admitted at 1315 to floor. Has had infection in thumb on R)hand. Was in hospital about a week ago and had an I&D done and was sent home on antibiotics. Was seen in Dr. Duke's office today. Has no secondary diagnosis. Thumb on R)hand is purple and very swollen. Patient has normal sensation in thumb. VSS. IV started on L) hand SL. Patient is NPO. Labs drawn. May have I&D today ??? Follow up:
[2016-09-17] MEDS ORDERED: HYDROCODON-ACE1 EAC4 PO (15:11)
[2016-09-17 15:13] LABS: ALBUMIN 3.8 gm/dL (3.5-5.0); ANION GAP 13.9 (10.0-19.0); AST 14 IU/L (10-40); BLOOD UREA NITROGEN 20 mg/dL (6-24); CO2 25 mMol/L (22-32)
[2016-09-17 15:14] LABS: ALT 32 IU/L (12-78)
--- NOTE | 2016-09-17 15:34 | NUR ---
Patient is 61 yo male admitted from clinic with infection in right thumb. he states he got infection a few weeks ago and is unsure how it got infected. had surgery about a week ago for I & D of the infection. right thumb is edematous and erythematous. saline lock is started in left forearm wih 20 ga intracath without difficulty. patient odilon well. education is given as documented. patient denies questions. pneumatics are on bilat. calves. call light is within reach. patient denies needs at this time. Report is given to GATITO Thompson.
--- NOTE | 2016-09-18 04:35 | NUR ---
Shift Summary: Patient came back from surgery at 1945. VS have been stable. He is on room air. Independent in the room. Tolerating regular diet well. Has voided multiple times. Is on scheduled Maybee BID and Morphine IV prn. Last dose of Morphine was 0124. Has brisk cap refill to right fingers. Unable to see thumb to assess. Possible PICC line placement today.
--- NOTE | 2016-09-18 10:00 | NUR ---
Introduced self/role to patient. Does not have insurance and admissions has already given him the financial assistance form. May need home abx, he is unsure if he will be getting a PICC or not yet. Wrote my name on his marker board, will continue to follow.
--- NOTE | 2016-09-18 16:30 | NUR ---
Significant Event: UP IN ROOM, HAD PICC LINE PLACED THIS AM. TOLERATED WELL. GAUZE/CASA WRAP D/I TO RIGHT HAND. C/O SLIGHT NUMBNESS TO RIGHT LATERAL RIGN FINGER, REPORTS NUMBNESS STARTED THIS AFTERNOON,BUT IS BETTER. RECIEVED ROUTINE NORCO THIS AM... Follow up:
--- NOTE | 2016-09-19 03:38 | NUR ---
Significant Event: PATIENT ALERT AND ORIENTED X 3. VSS. TAKING PO AND VOIDING WITHOUT DIFFICULTY. UP AD NAOMIE IN ROOM. DRESSING TO RIGHT THUMB/HAND C/D/I - DID LOOSEN CASA WRAP D/T PAIN. ABLE TO WIGGLE THUMB SLIGHTLY. UNABLE TO ASSESS CSM'S. PAIN WELL CONTROLLED WITH NORCO LAST AT 0140 AND MORPHINE. KEEPS RIGHT ARM ELEVATED. PICC LINE PATENT TO LEFT UPPER ARM. PLEASANT AND COOPERTIVE WITH CARES. Follow up:
--- NOTE | 2016-09-19 06:48 | NUR ---
[id number] [facility] Eusebiashanda Student.
--- NOTE | 2016-09-19 11:20 | NUR ---
Spoke with Ebony Hernandez, still waiting on cultures to come back. There would be a possibility of na IV med change but wont know that until maybe tomorrow. As it stands currently IV every 8 hours would not be an option for patient for the next 6 weeks. Also, there is the issues of no insurance coverage.
--- NOTE | 2016-09-19 15:07 | NUR ---
1445, picc dressing changed sterile technique, picc ext afsaneh 1 cm
--- NOTE | 2016-09-19 19:15 | NUR ---
Significant Event: UP IN ROOM. RIGHT HAND DRSG DI, KEEPS ARM ELEVATED. HAS PICC LINE. HADS NORCO 1 TAB AT 1730... Follow up:
--- NOTE | 2016-09-20 03:59 | NUR ---
POD#3 RIGHT THUMB DEBRIDEMENT, DSG CDI AND WAS CHANGED AT HS BY DR SALVADOR, KRISTA CSMS, UP AD NAOMIE AND INDEPENDENT IN ROOM, KATIA LANCASTER PICC CDI DSG DATED 09/19 WITH GOOD BLOOD RETURN AND EASY FLUSH AND NO LABS THIS AM, VS WNL, PAIN CONTROLLED WITH NORCO LD@0230, GOOD PO INTAKE/OUTPUT.
--- NOTE | 2016-09-20 15:45 | NUR ---
Significant Event: Alert and oriented X 3. Room air. SBP 110's. HR 60's and 70's. Lungs clear throughout. Independent in room. Left thumb dressing changed this a.m. by physical therapy. Radial pulse +2, wiggles fingers, cap refill less then 3. PICC to upper left arm, flushes well with good blood return. [place] given X 2, last given 1401. Reassessment rated pain at a 0/10. Pleasand and cooperative with cares. Follow up:
--- NOTE | 2016-09-21 02:52 | NUR ---
Shift Summary: Patient is independent in room/hallway. Good pain control with [place]. Has only had one this shift. Has PICC line to left upper arm that flushes well and has good blood return.
--- NOTE | 2016-09-21 18:52 | NUR ---
PATIENT HAS HAD A GOOD DAY, PLAN TO DISCHARGE SOON WE HAVE A FINAL RESULT ON CULTURE OF THE HAND WOUND. TO KNOW H0W TO TREAT AN OUT PATIENT. PATIENT HAS BEEN UP ADLIB THROUGHOUT THE DAY.
--- NOTE | 2016-09-22 05:51 | NUR ---
NEURO: A&O. Pleasant and coomperative. CMS good. CARDIO: No tele. VSS. RESP: Upper 90's on RA. GI/: No nausea. Voids independently in bathroom. No BM this shift. SKIN: Right thumb I&D dressing CDI. IV: PICC. Intermittant antibiotics. ACTIVITY: Independent. PAIN: [place] x 1 this shift. PLAN: Waiting on BC then discharge home with antibiotics.
--- NOTE | 2016-09-22 11:57 | NUR ---
Reviewed Ernie's chart and also talked with his RN. We are still waiting on cultures to come back to see what IV Abxs he will need upon discharge and no doctors have rounded at this point so we are just waiting on them. I left a note in the chart asking MD to call me once they knew what IV Abxs they would need to send him home on. Asked that they keep in mind that he is self pay so if we could get him on once a day or twice a day meds that would be great. Just as I was leaving, Dr. Ponce came around and states she is going to call ID to see what they give for recommendations and then she will call me with what they tell her. Will continue to follow and assist. Plan home with outpatient IV Abxs either later today or tomorrow.
[2016-09-22] MEDS ORDERED: INVANZ1 G1 IV (16:16)
[2016-09-22] MEDS ORDERED: ALIGN4 MG PO (16:19)
--- NOTE | 2016-09-22 17:30 | NUR ---
D: PATIENT ALERT AND ORIENTED X3. CASA DRESSING TO R) HAND C/D/I. CSM ASSESSMENTS WNL. SINGLE LUMEN PICC TO L) UPPER ARM FLUSHES WELL WITH GOOD BLOOD RETURN, PATIENT DISCHARGED WITH PICC IN PLACE, DRESSING TO PICC SITE C/D/I. AMBULATES AD NAOMIE, GAIT STEADY. R) ARM ELEVATED. PAIN WELL CONTROLLED WITH NORCO 2 TABS GIVEN AT 0856. HAD WHIRLPOOL TO HAND THIS AM WITH PHYSICAL THERAPY ASSISTANCE. NOTE DRESSING TO R) HAND/THUMB CHANGED BY PHYSICAL THERAPIST. DISCHARGE INSTRUCTIONS REVIEWED WITH PATIENT AND , VERBALIZES UNDERSTANDING. PATIENT DISMISSED TO HOME, ACCOMPANIED BY . ASSISTED TO VEHICLE VIA W/C AND NURSE ASSISTANCE.
== END 2016-09-22 17:35 | disposition disaster alternative care site (69) | DRG 516 ==
LOC: G3N 12:52 → GPCU 09-20 16:40
PROVIDERS: ADMIT Internal Medicine
PROC: 05HC33Z Insertion of Infusion Device into Left Basilic Vein, Percutaneous Approach (ICD-10-PCS; principal; 2016-09-17)
PROC: 0PBR0ZZ Excision of Right Thumb Phalanx, Open Approach (ICD-10-PCS; principal; 2016-09-17)
PROC: B54NZZA Ultrasonography of Left Upper Extremity Veins, Guidance (ICD-10-PCS; principal; 2016-09-17)
DX: M86.9 Osteomyelitis, unspecified (principal); M87.9 Osteonecrosis, unspecified; L02.511 Cutaneous abscess of right hand; L03.011 Cellulitis of right finger; B95.62 Methicillin resistant Staphylococcus aureus infection as the cause of diseases classified elsewhere
CPT/HCPCS: C1751; J0690; J1335; J2270; J3010; J7050; J7120